=== PATIENT | female | born 1995 | race Caucasian/White ===

== ENCOUNTER 2017-12-10 17:54 | Emergency (ER) | payer MEDICAID ==
[2017-12-10 19:46] VITALS: BP 119/74
--- NOTE | 2017-12-10 19:49 | EDM.PDOC ---
ED HPI GENERAL MEDICAL PROBLEM - General Chief Complaint: General Stated Complaint: PT HAS FLU Time Seen by Provider: 12/10/17 19:26 - History of Present Illness INITIAL COMMENTS - FREE TEXT/NARRATIVE: HISTORY AND PHYSICAL: History of present illness: Patient is a 22-year-old white female presents with concern of cough congestion bodyaches she is a smoker she denies influenza immunization this been no fever chills nausea vomiting or other complaints Review of systems: As per history of present illness and below otherwise all systems reviewed and negative. Past medical history: As per history of present illness and as reviewed below otherwise noncontributory. Surgical history: As per history of present illness and as reviewed below otherwise noncontributory. Social history: No reported history of drug or alcohol abuse. Family history: As per history of present illness and as reviewed below otherwise noncontributory. Physical exam: HEENT: Atraumatic, normocephalic, pupils reactive, negative for conjunctival pallor or scleral icterus, mucous membranes moist, throat clear, neck supple, nontender, trachea midline. Lungs: Clear to auscultation, breath sounds equal bilaterally, chest nontender. Heart: S1S2, regular, negative for clicks, rubs, or JVD. Abdomen: Soft, nondistended, nontender. Negative for masses or hepatosplenomegaly. Negative for costovertebral tenderness. Pelvis: Stable nontender. Genitourinary: Deferred. Rectal: Deferred. Extremities: Atraumatic, negative for cords or calf pain. Neurovascular unremarkable. Neuro: Awake, alert, oriented. Cranial nerves II through XII unremarkable. Cerebellum unremarkable. Motor and sensory unremarkable throughout. Exam nonfocal. Diagnostics: Influenza screen Therapeutics: None Impression: #1 tracheobronchitis Definitive disposition and diagnosis as appropriate pending reevaluation and review of above. headache Pain Score (Numeric/FACES): 7 - Related Data Allergies Allergy/AdvReac Type Severity Reaction Status Date / Time mirtazapine [From Remeron] Allergy Hallucinati Verified 12/10/17 18:43 ons risperidone Allergy Other Verified 12/10/17 18:43 Home Meds: Home Meds . [No Known Home Meds] 07/11/16 [History] Past Medical History - Past Health History Medical/Surgical History: Denies Medical/Surgical History HEENT History: Reports: Impaired Vision Cardiovascular History: Reports: None Respiratory History: Reports: Asthma Gastrointestinal History: Reports: None Genitourinary History: Reports: STD, UTI, Recurrent CONSULTANT DIETITIAN History: Reports: , Spontaneous Musculoskeletal History: Reports: Fracture Neurological History: Reports: None Psychiatric History: Reports: Anxiety, Depression Endocrine/Metabolic History: Reports: None Hematologic History: Reports: None, Other (See Below) Other Hematologic History: IPT Immunologic History: Reports: None Oncologic (Cancer) History: Reports: None Dermatologic History: Reports: None - Infectious Disease History Infectious Disease History: Reports: Chicken Pox - Past Surgical History Head Surgeries/Procedures: Reports: None HEENT Surgical History: Reports: Visual, Other (See Below) Cardiovascular Surgical History: Reports: None Respiratory Surgical History: Reports: None GI Surgical History: Reports: None Female Surgical History: Reports: None Endocrine Surgical History: Reports: None Neurological Surgical History: Reports: None Musculoskeletal Surgical History: Reports: None Oncologic Surgical History: Reports: None Social & Family History - Family History Family Medical History: Noncontributory HEENT: Reports: None Cardiac: Reports: None Respiratory: Reports: None GI: Reports: None : Reports: None OBGYN: Reports: None Musculoskeletal: Reports: None Neurological: Reports: None Psychiatric: Reports: None Hematologic: Reports: None Immunologic: Reports: None Dermatologic: Reports: None Oncologic: Reports: None - Tobacco Use Smoking Status *Q: Current Every Day Smoker Years of Tobacco use: 5 Packs/Tins Daily: 0.5 Used Tobacco, but Quit: No Second Hand Smoke Exposure: No - Caffeine Use Caffeine Use: Reports: Soda - Alcohol Use Days Per Week of Alcohol Use: 0 Number of Drinks Per Day: 2 Total Drinks Per Week: 0 - Recreational Drug Use Recreational Drug Use: No ED ROS GENERAL - Review of Systems Review Of Systems: ROS reveals no pertinent complaints other than HPI. ED EXAM, GENERAL - Physical Exam Exam: See Below (See dictation) Course - Vital Signs Last Recorded V/S: Last Vital Signs Temp 37.2 C 12/10/17 19:45 Pulse 105 H 12/10/17 19:45 Resp 18 12/10/17 19:45 BP 119/74 12/10/17 19:45 Pulse Ox 97 12/10/17 19:45 Departure - Departure Time of Disposition: 19:49 Disposition: Home, Self-Care 01 Condition: Good Clinical Impression: Tracheobronchitis - Discharge Information Referrals: PCP,None [Primary Care Provider] - Additional Instructions: The following information is given to patients seen in the emergency department who are being discharged to home. This information is to outline your options for follow-up care. We provide all patients seen in our emergency department with a follow-up referral. The need for follow-up, as well as the timing and circumstances, are variable depending upon the specifics of your emergency department visit. If you don't have a primary care physician on staff, we will provide you with a referral. We always advise you to contact your personal physician following an emergency department visit to inform them of the circumstance of the visit and for follow-up with them and/or the need for any referrals to a consulting specialist. The emergency department will also refer you to a specialist when appropriate. This referral assures that you have the opportunity for followup care with a specialist. All of these measure are taken in an effort to provide you with optimal care, which includes your followup. Under all circumstances we always encourage you to contact your private physician who remains a resource for coordinating your care. When calling for followup care, please make the office aware that this follow-up is from your recent emergency room visit. If for any reason you are refused follow-up, please contact the [facility] emergency department at and asked to speak to the emergency department charge nurse. [facility] [address] [place] [id number] Lisa-Giuliano albuterol as prescribed stop smoking follow-up primary medical doctor and/ or clinic above call to schedule routine appointment return as needed as discussed
== END 2017-12-10 19:56 | disposition home or self-care (01) ==
LOC: MW.ED 17:54
DX: J40 Bronchitis, not specified as acute or chronic (principal); F17.210 Nicotine dependence, cigarettes, uncomplicated; Z88.8 Allergy status to other drugs, medicaments and biological substances
CPT/HCPCS: 87804; 99283

== ENCOUNTER 2020-12-22 09:56 | Inpatient (IN) | payer BC, OTHER ==
[2020-12-22] MEDS: Lactated Ringers 1,000 ML IV SCH ×2 (10:18→11:34)
[2020-12-22] MEDS ORDERED: Sodium Chloride 0.9% 2.5 ML Syringe FLUSH PRN (10:36)
[2020-12-22] MEDS ORDERED: Sodium Chloride 0.9% 10 ML SDV IV PRN (10:36)
[2020-12-22] MEDS ORDERED: Sodium Chloride 0.9% 10 ML Syringe FLUSH PRN (10:36)
[2020-12-22] MEDS ORDERED: Oxytocin/0.9 % Sodium Chloride 30 UNIT/500 ML BAG IV SCH (10:45)
--- NOTE | 2020-12-22 10:56 | PCM.LDHP ---
L&D History of Present Illness - General Date of Service: 12/22/20 Admit Problem/Dx: Patient Status Order with Admit Dx/Problem 12/22/20 10:05 Patient Status [ADT] Routine Admission Diagnosis/Problem Admission Diagnosis/Problem Source of Information: Patient History Limitations: Reports: No Limitations - History of Present Illness Improves with: Reports: None Worsens with: Reports: None Associated Symptoms: Reports: N - Related Data Allergies/Adverse Reactions: Allergies Allergy/AdvReac Type Severity Reaction Status Date / Time mirtazapine [From Remeron] Allergy Hallucinati Verified 12/21/20 07:47 ons risperidone Allergy Cannot Verified 12/21/20 09:22 Remember Home Medications: Home Meds Levothyroxine Sodium [Levothyroxine] 50 mcg PO BEDTIME 12/05/20 [History] PARoxetine HCL [Paroxetine HCl] 20 mg PO BEDTIME 12/05/20 [History] Calcium Carbonate [Tums] 1 tab.chew CHEW ASDIRECTED PRN 12/21/20 [History] Clindamycin Phos/Benzoyl Perox [Clind pH-Benzoyl Mavis 1.2-2.5%] 1 applic TOP DAILY 12/21/20 [History] Past Medical History - Past Health History Medical/Surgical History: Denies Medical/Surgical History HEENT History: Reports: Impaired Vision Other HEENT History: wears glasses Cardiovascular History: Reports: None Other Cardiovascular History: murmur as a child Respiratory History: Reports: Asthma Other Respiratory History: "undiagnosed sleep apnea", failed home sleep study, asthma in the past Gastrointestinal History: Reports: None Other Gastrointestinal History: occasional heartburn with Genitourinary History: Reports: STD, UTI, Recurrent 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 SUBMARINE CABLE History: Reports: , Spontaneous Musculoskeletal History: Reports: Fracture Neurological History: Reports: None Psychiatric History: Reports: Anxiety, Depression Endocrine/Metabolic History: Reports: None Hematologic History: Reports: None, Other (See Below) Other Hematologic History: IPT Immunologic History: Reports: None Oncologic (Cancer) History: Reports: None Dermatologic History: Reports: None - Infectious Disease History Infectious Disease History: Reports: Chicken Pox - Past Surgical History HEENT Surgical History: Reports: Visual, Other (See Below) Other HEENT Surgeries/Procedures: eye surgery Female Surgical History: Reports: None Social & Family History - Family History Family Medical History: No Pertinent Family History HEENT: Reports: None Cardiac: Reports: None Respiratory: Reports: None GI: Reports: None : Reports: None OBGYN: Reports: None Musculoskeletal: Reports: None Neurological: Reports: None Psychiatric: Reports: None Hematologic: Reports: None Immunologic: Reports: None Dermatologic: Reports: None Oncologic: Reports: None - Caffeine Use Caffeine Use: Reports: Soda H&P Review of Systems - Review of Systems: Review Of Systems: See Below General: Reports: No Symptoms HEENT: Reports: No Symptoms Pulmonary: Reports: No Symptoms Cardiovascular: Reports: No Symptoms Gastrointestinal: Reports: No Symptoms Genitourinary: Reports: No Symptoms Musculoskeletal: Reports: No Symptoms Skin: Reports: No Symptoms Psychiatric: Reports: No Symptoms Neurological: Reports: No Symptoms Hematologic/Lymphatic: Reports: No Symptoms Immunologic: Reports: No Symptoms L&D Exam - Exam Exam: See Below - Vital Signs Weight: 108.862 kg - OB Specific Contraction Intensity: Mild Movement: Active Heart Tones: Present Presentation: Vertex - Michaud Score Michaud Score Cervix Position: Posterior Michaud Score Consistency: Medium Michaud Score Effacement: 31-50% Michaud Score Dilation: 1-2 cm Michaud Score 's Station: -3 Michaud Score Total: 3 - Exam General: Alert, Oriented HEENT: PERRLA, Conjunctiva Clear, EACs Clear, EOMI, Hearing Intact, Mucosa Moist & [place], Nares Patent, Normal Nasal Septum, Posterior Pharynx Clear, TMs Clear Neck: Supple, Trachea Midline Lungs: Clear to Auscultation, Normal Respiratory Effort Cardiovascular: Regular Rate, Regular Rhythm GI/Abdominal Exam: Normal Bowel Sounds, Soft, Non-Tender, No Organomegaly, No Distention, No Abnormal Bruit, No Mass, Pelvis Stable Rectal Exam: Normal Exam, Normal Rectal Tone Genitourinary: Normal external exam, Normal bimanual exam, Normal speculum exam Back Exam: Normal Inspection, Full Range of Motion Extremities: Normal Inspection, Normal Range of Motion, Non-Tender, No Pedal Edema, Normal Capillary Refill Skin: Warm, Dry, Intact Neurological: Cranial Nerves Intact, Reflexes Equal Bilateral Psychiatric: Alert, Normal Affect, Normal Mood Problem List Initiated/Reviewed/Updated: Yes Orders Last 24hrs: Active Orders 24 hr Category Date Time Status Patient Status [ADT] Routine ADT 12/22/20 10:05 Active Non Stress Test [RC] PER UNIT ROUTINE Care 12/22/20 10:36 Active Notify Provider Vital Signs [RC] PRN Care 12/22/20 10:37 Active Procedure Site Prep Instruct [RC] ASDIRECTED Care 12/22/20 10:36 Active Up ad Mela [RC] ASDIRECTED Care 12/22/20 10:36 Active Verify Patient Consent Obtain [RC] ASDIRECTED Care 12/22/20 10:36 Active Vital Signs [RC] PER UNIT ROUTINE Care 12/22/20 10:36 Active CBC W/O DIFF,HEMOGRAM [HEME] Routine Lab 12/22/20 10:18 Received RPR (SYPHILIS SERO) W/ RFLX [REF] Routine Lab 12/22/20 10:18 Received TYPE AND SCREEN [BBK] Routine Lab 12/22/20 10:18 Received Citric Acid/Sodium Citrate [Bicitra Solution] Med 12/22/20 12:00 Once 30 ml PO ONETIME ONE Lactated Ringers [Ringers, Lactated] 1,000 ml Med 12/22/20 10:45 Active IV BOLUS Oxytocin/0.9 % Sodium Chloride [Oxytocin 30 Unit/500 ML Med 12/22/20 10:45 Active -NS] 30 unit in 500 ml IV TITRATE Sodium Chloride 0.9% [Normal Saline] Med 12/22/20 10:36 Active 10 ml IV ASDIRECTED PRN Sodium Chloride 0.9% [Saline Flush] Med 12/22/20 10:36 Active 10 ml FLUSH ASDIRECTED PRN Sodium Chloride 0.9% [Saline Flush] Med 12/22/20 10:36 Active 2.5 ml FLUSH ASDIRECTED PRN Peripheral IV Insertion Adult [OM.PC] Routine Oth 12/22/20 10:36 Ordered Schedule Procedure [COMM] Per Unit Routine Oth 12/22/20 10:36 Ordered Resuscitation Status Routine Resus Stat 12/22/20 10:36 Ordered Medication Orders Citric Acid/Sodium Citrate (Bicitra Solution) 30 ml PO ONETIME ONE Stop: 12/22/20 12:01 Oxytocin/Sodium Chloride (Oxytocin 30 Unit/500 Ml-Ns) 30 unit in 500 mls @ 250 mls/hr IV TITRATE ABILIO Lactated Ringer's (Ringers, Lactated) 1,000 mls @ 500 mls/hr IV BOLUS ABILIO Sodium Chloride (Saline Flush) 10 ml FLUSH ASDIRECTED PRN PRN Reason: Keep Vein Open Sodium Chloride (Saline Flush) 2.5 ml FLUSH ASDIRECTED PRN PRN Reason: Keep Vein Open Sodium Chloride (Normal Saline) 10 ml IV ASDIRECTED PRN PRN Reason: IV Use Assessment/Plan Comment:: Intrauterine 38 weeks the previous section the patient admitted for elective repeat section she is having contraction immunizations comfortable however it is not dilating her cervix. patient have a history of ITP and she is followed by a special education superintendent here and she is cleared by him for surgery.
[2020-12-22] MEDS ORDERED: Octyl 2-Cyanoacrylate 1 Tube ONE (11:32)
[2020-12-22] MEDS ORDERED: Citric Acid/Sodium Citrate Solution 30 ML Cup PO ONE (12:00)
[2020-12-22] MEDS ORDERED: Ondansetron 4 MG/2 ML SDV IVPUSH PRN (12:33)
[2020-12-22] MEDS ORDERED: Acetaminophen/oxyCODONE 325-5 MG Tab PO PRN (12:33)
[2020-12-22] MEDS ORDERED: Tranexamic Acid 1,000 MG in Sodium Chloride 0.9% 100 ML IV PRN (12:33)
[2020-12-22] MEDS ORDERED: Lanolin 100% Cream 7 GM Tube TOP PRN (12:33)
[2020-12-22] MEDS ORDERED: Bisacodyl 10 MG Supp RECTAL PRN (12:33)
[2020-12-22] MEDS ORDERED: Methylergonovine 0.2 MG/1 ML Amp IM PRN (12:33)
[2020-12-22] MEDS ORDERED: Oxytocin 10 Units/1 ML SDV IM PRN (12:33)
[2020-12-22] MEDS ORDERED: diphenhydrAMINE 50 MG/ML SDV IVPUSH PRN (12:33)
[2020-12-22] MEDS ORDERED: Misoprostol 200 MCG Tab RECTAL PRN (12:33)
--- NOTE | 2020-12-22 12:38 | PCM.OPNOTE ---
- General Post-Op/Procedure Note Date of Surgery/Procedure: 12/22/20 Operative Procedure(s): Repeat C/section. Pre Op Diagnosis: [id number] Previous C/section. ITP Post-Op Diagnosis: Same Anesthesia Technique: Spinal Primary Surgeon: Cuauhtemoc Mcknight V Groove Cutter: Radha Leonardo EBL in mLs: 600 Complications: None Condition: Good
[2020-12-22] MEDS ORDERED: Ketorolac 30 MG/ML SDV IVPUSH SCH (12:45)
[2020-12-22] MEDS ORDERED: Lactated Ringers 1,000 ML IV SCH (12:45)
--- NOTE | 2020-12-22 13:28 | PCM.POSTAN ---
POST ANESTHESIA ASSESSMENT - MENTAL STATUS Mental Status: Alert - RESPIRATORY Respiratory Status: Respiratory Rate WNL - CARDIOVASCULAR CV Status: Pulse Rate WNL - GASTROINTESTINAL GI Status: No Symptoms - POST OP HYDRATION Hydration Status: Adequate & Stable
[2020-12-22] MEDS: Acetaminophen/oxyCODONE 325-5 MG Tab PO PRN ×2 (15:51→20:54)
[2020-12-22] MEDS ORDERED: Ibuprofen 800 MG Tab PO PRN (16:03)
[2020-12-22] MEDS: Docusate Sodium 100 MG Cap PO SCH (20:54)
[2020-12-23] MEDS: Acetaminophen/oxyCODONE 325-5 MG Tab PO PRN ×4 (00:45→14:51)
--- NOTE | 2020-12-23 05:45 | PCM.PNPP ---
- General Info Date of Service: 12/23/20 Admission Dx/Problem (Free Text): Patient Status Order with Admit Dx/Problem 12/22/20 10:05 Patient Status [ADT] Routine Admission Diagnosis/Problem Admission Diagnosis/Problem Melvina is a 25 yo s/p repeat LTCS at 38+0 weeks d/t spontaneous contractions. Patient reports she is doing well today; denies C/O fever, chills, sweating, cough, SOB, or any other problems or concerns today. NBF is at bedside in bassinet, resting quietly, EBFing well and without issue. Patient independently ambulating, eating, hydrating. Rivas catheter urine clear, discontinued ~5:15 am today; has not yet voided. Moderate surgical incision pain controlled with PO analgesia. CBC pending. hx includes: ITP, anemia, hypothyroidism, obesity. Functional Status: Reports: Pain Controlled, Tolerating Diet, Ambulating - Review of Systems General: Reports: No Symptoms HEENT: Reports: No Symptoms Pulmonary: Reports: No Symptoms Cardiovascular: Reports: No Symptoms Gastrointestinal: Reports: No Symptoms Genitourinary: Reports: No Symptoms Musculoskeletal: Reports: No Symptoms Skin: Reports: No Symptoms Neurological: Reports: No Symptoms Psychiatric: Reports: No Symptoms - General Info Date of Service: 12/23/20 - Patient Data Vital Signs - Most Recent: Last Vital Signs Temp 97.8 F 12/23/20 05:00 Pulse 98 12/23/20 05:00 Resp 18 12/23/20 05:00 BP 137/66 12/23/20 05:00 Pulse Ox 95 12/23/20 05:00 Weight - Most Recent: 240 lb I&O - Last 24 Hours: Intake & Output 12/22/20 12/22/20 12/23/20 14:59 22:59 06:59 Intake Total 2100 500 Output Total 750 850 Balance 1350 -350 Lab Results - Last 24 Hours: Laboratory Results - last 24 hr 12/22/20 12/22/20 Range/Units 10:18 10:18 WBC 11.03 H (4.0-11.0) K/uL RBC 3.98 L (4.30-5.90) M/uL Hgb 9.2 L (12.0-16.0) g/dL Hct 30.6 L (36.0-46.0) % MCV 76.9 L (80.0-98.0) fL MCH 23.1 L (27.0-32.0) pg MCHC 30.1 L (31.0-37.0) g/dL RDW Std Deviation 45.0 (28.0-62.0) fl RDW Coeff of Sintia 16 H (11.0-15.0) % Plt Count 73 L (150-400) K/uL Nucleated RBC % 0.7 /100WBC Nucleated RBCs # 0 K/uL Blood Type B POSITIVE Antibody Screen NEGATIVE Crossmatch See Detail Med Orders - Current: Current Medications Bisacodyl (Dulcolax) 10 mg RECTAL ONETIME PRN PRN Reason: Constipation Diphenhydramine HCl (Benadryl) 25 mg IVPUSH Q6H PRN PRN Reason: Itching or Nausea Last Admin: 12/22/20 14:02 Dose: 25 mg Documented by: Docusate Sodium (Colace) 100 mg PO BID [facility] Last Admin: 12/22/20 20:54 Dose: 100 mg Documented by: Emollient Ointment (Lansinoh Hpa) 0 gm TOP ASDIRECTED PRN PRN Reason: Sore Nipples Oxytocin/Sodium Chloride (Oxytocin 30 Unit/500 Ml-Ns) 30 unit in 500 mls @ 250 mls/hr IV TITRATE [facility] Lactated Ringer's (Ringers, Lactated) 1,000 mls @ 500 mls/hr IV BOLUS [facility] Last Admin: 12/22/20 11:34 Dose: 999 mls/hr Documented by: Lactated Ringer's (Ringers, Lactated) 1,000 mls @ 125 mls/hr IV ASDIRECTED [facility] Last Admin: 12/22/20 16:57 Dose: 125 mls/hr Documented by: Tranexamic Acid 1,000 mg/ (Sodium Chloride) 110 mls @ 660 mls/hr IV ONETIME PRN PRN Reason: Bleeding Ibuprofen (Motrin) 800 mg PO Q8H PRN PRN Reason: mild pain or fever Methylergonovine Maleate (Methergine) 0.2 mg IM ONETIME PRN PRN Reason: Excessive Vaginal Bleeding Misoprostol (Cytotec) 1,000 mcg RECTAL ONETIME PRN PRN Reason: excessive bleeding Ondansetron HCl (Zofran) 4 mg IVPUSH Q4H PRN PRN Reason: Nausea/Vomiting Oxycodone/Acetaminophen (Percocet 325-5 Mg) 1 tab PO Q4H PRN PRN Reason: Pain (moderate 4-6) Oxycodone/Acetaminophen (Percocet 325-5 Mg) 2 tab PO Q4H PRN PRN Reason: Pain (moderate 4-6) Last Admin: 12/23/20 04:58 Dose: 2 tab Documented by: Oxytocin (Pitocin) 10 unit IM ASDIRECTED PRN PRN Reason: Excessive Vaginal Bleeding Polysaccharide Iron Complex (Ferrex 150) 150 mg PO BID [facility] Sodium Chloride (Saline Flush) 10 ml FLUSH ASDIRECTED PRN PRN Reason: Keep Vein Open Sodium Chloride (Saline Flush) 2.5 ml FLUSH ASDIRECTED PRN PRN Reason: Keep Vein Open Sodium Chloride (Normal Saline) 10 ml IV ASDIRECTED PRN PRN Reason: IV Use Discontinued Medications Citric Acid/Sodium Citrate (Bicitra Solution) 30 ml PO ONETIME ONE Stop: 12/22/20 12:01 Last Admin: 12/22/20 15:40 Dose: Not Given Documented by: Ketorolac Tromethamine (Toradol) 30 mg IVPUSH Q6H [facility] Stop: 12/23/20 12:46 Last Admin: 12/22/20 15:40 Dose: Not Given Documented by: Octyl Cyanoacrylate (Dermabond Advance) Confirm Administered Dose 1 applic .ROUTE .STK-MED ONE Stop: 12/22/20 11:33 - Interaction Infant Disposition, : at Bedside Interaction: Not Interacting Infant Feeding: Breastfed ; Nursed Well, Continues to Breastfeed, Encouraged to Breastfeed Support Person: - Recovery Exam Fundal Tone: Firm Fundal Level: 1 Fingerbreadths Below Umbilicus Fundal Placement: Midline Lochia Amount: Moderate Lochia Color: Rubra/Red Perineum Description: Intact, Minimal Bruising/Swelling Episiotomy/Laceration: None Bladder Status: Nonpalpable Urinary Elimination: Not Voiding Other Urinary Elimination, : Rivas catheter discontinued ~0515 am today - Exam General: Alert, Oriented, Cooperative, No Acute Distress HEENT: Pupils Equal, Mucous Membr. Moist/Eugenio Saenz Neck: Supple Lungs: Clear to Auscultation, Normal Respiratory Effort Cardiovascular: Regular Rate, Regular Rhythm GI/Abdominal Exam: Normal Bowel Sounds, Soft, Non-Tender, No Organomegaly, No Distention Extremities: Normal Inspection, Normal Range of Motion, Non-Tender, No Pedal Edema, Normal Capillary Refill Skin: Warm, Dry, Intact Wound/Incisions: Dressing Dry and Intact (MISHA dressing clean, dry, intact, no drainage noted.) Neurological: No New Focal Deficit Psy/Mental Status: Alert, Normal Affect, Normal Mood - Problem List & Annotations (1) Status post repeat low transverse section SNOMED Code(s): 963082786, 73665233, 756121512, 526287174, 001717123 Code(s): Z98.891 - HISTORY OF UTERINE SCAR FROM PREVIOUS SURGERY Status: Acute Priority: High Current Visit: Yes (2) Lactating mother SNOMED Code(s): 992825008, 972215825 Code(s): Z39.1 - ENCOUNTER FOR CARE AND EXAMINATION OF LACTATING MOTHER Status: Acute Priority: High Current Visit: Yes - Problem List Review Problem List Initiated/Reviewed/Updated: Yes - My Orders Last 24 Hours: My Active Orders 12/23/20 05:00 CBC WITH AUTO DIFF [HEME] Routine 12/23/20 09:00 Iron Polysaccharides Complex [Ferrex 150] 150 mg PO BID - Plan Plan:: Continue with POC s/p repeat LTCS of viable NBF. Rivas D/Cd, if patient has not voided within 6 hours S/P D/C, plan to notify provider. Plan to ambulate 3-5 times today. Continue to eat, hydrate, and EBF independently. Plan to continue PO analgesia today. Iron 150 mg BID initiated today re: anemia. CBC collection pending. Dr. Mcknight notified and agreeable with POC.
--- NOTE | 2020-12-23 07:29 | PCM48HPAN ---
Post Anesthesia Note - EVALUATION WITHIN 48HRS OF ANESTHETIC Vital Signs in Normal Range: Yes Patient Participated in Evaluation: Yes Respiratory Function Stable: Yes Airway Patent: Yes Cardiovascular Function Stable: Yes Hydration Status Stable: Yes Pain Control Satisfactory: Yes Nausea and Vomiting Control Satisfactory: Yes Mental Status Recovered: Yes Vital Signs: Last Vital Signs Temp 36.6 C 12/23/20 05:00 Pulse 101 H 12/23/20 06:55 Resp 18 12/23/20 06:55 BP 137/66 12/23/20 05:00 Pulse Ox 91 L 12/23/20 06:55
[2020-12-23] MEDS: Iron Polysaccharides Complex 150 MG Cap PO SCH ×2 (09:20→20:26)
[2020-12-23] MEDS: Docusate Sodium 100 MG Cap PO SCH ×2 (09:20→20:26)
[2020-12-23] MEDS: Acetaminophen/oxyCODONE 325-10 MG Tab PO PRN ×2 (19:13→23:30)
[2020-12-23] MEDS ORDERED: Simethicone 80 MG Tab.Chew PO PRN (20:01)
[2020-12-24] MEDS: Acetaminophen/oxyCODONE 325-10 MG Tab PO PRN ×3 (04:24→14:38)
[2020-12-24] MEDS: Docusate Sodium 100 MG Cap PO SCH (08:54)
[2020-12-24] MEDS: Iron Polysaccharides Complex 150 MG Cap PO SCH (08:54)
--- NOTE | 2020-12-24 12:02 | PCM.DCSUM1 ---
Discharge Summary - Hospital Course Free Text/Narrative:: Melvina is a 25 yo PPD2 s/p repeat LTCS at 38+0 weeks d/t spontaneous contractions. Patient reports she is doing well today; denies C/O fever, chills, sweating, cough, SOB, or any other problems or concerns today. NBF is at bedside in bassinet, resting quietly, EBFing fairly well with bottle supplementation. Patient independently ambulating, eating, hydrating, urinating. Moderate surgical incision pain controlled with PO analgesia, moderate "gas pains" alleviated with hydration, ambulation, flatulence, and simethicone. MISHA dressing clean, dry, intact, scant old blood noted to midline incision. hx includes: ITP, anemia, hypothyroidism, obesity. Hgb: 9.0, Platelets 97. Hemodynamically stable, afebrile. Diagnosis: Stroke: No - Discharge Data Discharge Date: 12/24/20 Discharge Disposition: Home, Self-Care 01 Condition: Good - Referral to Home Health Primary Care Physician: PCP None - Discharge Diagnosis/Problem(s) (1) Status post repeat low transverse section SNOMED Code(s): 116685961, [id number], [id number], [id number], [id number] ICD Code: Z98.891 - HISTORY OF UTERINE SCAR FROM PREVIOUS SURGERY Status: Acute Priority: High Current Visit: Yes (2) Lactating mother SNOMED Code(s): 406262784, 430898352 ICD Code: Z39.1 - ENCOUNTER FOR CARE AND EXAMINATION OF LACTATING MOTHER Status: Acute Priority: High Current Visit: Yes - Patient Summary/Data Operative Procedure(s) Performed: Repeat C/section. - Patient Instructions Diet: Usual Diet as Tolerated, Regular Diet as Tolerated, Drink 8-10+ Glasses/Day Activity: As Tolerated, No Strenuous Activities, Rest and Relax Today Driving: May Drive Today Showering/Bathing: May Shower Wound/Incision Care: Keep Operative Site/Wound Site Clean and Dry, Do NOT Change Dressing Notify Provider of: Fever, Increased Pain, Swelling and Redness, Drainage, Nausea and/or Vomiting - Discharge Plan *PRESCRIPTION DRUG MONITORING PROGRAM REVIEWED*: No *COPY OF PRESCRIPTION DRUG MONITORING REPORT IN PATIENT CHANTAL: No Prescriptions/Med Rec: Docusate Sodium [Colace] 100 mg PO BID #60 cap Iron Polysaccharides Complex [Ferrex 150] 150 mg PO DAILY #30 cap polyethylene glycoL 3350 [MiraLAX] 17 gm PO DAILY #1 container Ibuprofen [Motrin] 800 mg PO Q8H PRN #90 tablet PRN Reason: mild pain or fever Acetaminophen/oxyCODONE [Percocet 325-10 MG] 0.5 - 1 tab PO Q4H PRN #15 tablet PRN Reason: Pain Simethicone 160 mg PO Q4H PRN #60 tab.chew PRN Reason: Gas Home Medications: Home Meds Levothyroxine Sodium [Levothyroxine] 50 mcg PO BEDTIME 12/05/20 [History] PARoxetine HCL [Paroxetine HCl] 20 mg PO BEDTIME 12/05/20 [History] Acetaminophen/oxyCODONE [Percocet 325-10 MG] 0.5 - 1 tab PO Q4H PRN #15 tablet 12/24/20 [Rx] Docusate Sodium [Colace] 100 mg PO BID #60 cap 12/24/20 [Rx] Ibuprofen [Motrin] 800 mg PO Q8H PRN #90 tablet 12/24/20 [Rx] Iron Polysaccharides Complex [Ferrex 150] 150 mg PO DAILY #30 cap 12/24/20 [Rx] Simethicone 160 mg PO Q4H PRN #60 tab.chew 12/24/20 [Rx] polyethylene glycoL 3350 [MiraLAX] 17 gm PO DAILY #1 container 12/24/20 [Rx] Oxygen Therapy Mode: Room Air - Discharge Summary/Plan Comment DC Time >30 min.: Yes Discharge Summary/Plan Comment: OK to discharge home today. Keep dressing clean, dry, intact. RTO in 1 week for dressing removal and incision check. - General Info Date of Service: 12/24/20 Admission Dx/Problem (Free Text: Patient Status Order with Admit Dx/Problem 12/22/20 10:05 Patient Status [ADT] Routine Admission Diagnosis/Problem Admission Diagnosis/Problem Melvina is a 25 yo s/p repeat LTCS at 38+0 weeks d/t spontaneous contractions. Patient reports she is doing well today; denies C/O fever, chills, sweating, cough, SOB, or any other problems or concerns today. NBF is at bedside in bassinet, resting quietly, EBFing well and without issue. Patient independently ambulating, eating, hydrating. Rivas catheter urine clear, discontinued ~5:15 am today; has not yet voided. Moderate surgical incision pain controlled with PO analgesia. CBC pending. hx includes: ITP, anemia, hypothyroidism, obesity. Functional Status: Reports: Pain Controlled, Tolerating Diet, Ambulating, Urinating - Review of Systems General: Reports: No Symptoms HEENT: Reports: No Symptoms Pulmonary: Reports: No Symptoms Cardiovascular: Reports: No Symptoms Gastrointestinal: Reports: No Symptoms Genitourinary: Reports: No Symptoms Musculoskeletal: Reports: No Symptoms Skin: Reports: No Symptoms Neurological: Reports: No Symptoms Psychiatric: Reports: No Symptoms - Patient Data Vitals - Most Recent: Last Vital Signs Temp 97.4 F 12/24/20 08:59 Pulse 102 H 12/24/20 08:59 Resp 18 12/24/20 08:59 BP 123/75 12/24/20 08:59 Pulse Ox 99 12/24/20 08:59 Weight - Most Recent: 240 lb Lab Results - Last 24 hrs: Laboratory Results - last 24 hr 12/24/20 Range/Units 10:06 WBC 18.07 H (4.0-11.0) K/uL RBC 3.90 L (4.30-5.90) M/uL Hgb 9.0 L (12.0-16.0) g/dL Hct 30.6 L (36.0-46.0) % MCV 78.5 L (80.0-98.0) fL MCH 23.1 L (27.0-32.0) pg MCHC 29.4 L (31.0-37.0) g/dL RDW Std Deviation 47.4 (28.0-62.0) fl RDW Coeff of Sintia 17 H (11.0-15.0) % Plt Count 97 L (150-400) K/uL Nucleated RBC % 0.0 /100WBC Nucleated RBCs # 0 K/uL Med Orders - Current: Current Medications Bisacodyl (Dulcolax) 10 mg RECTAL ONETIME PRN PRN Reason: Constipation Diphenhydramine HCl (Benadryl) 25 mg IVPUSH Q6H PRN PRN Reason: Itching or Nausea Last Admin: 12/22/20 14:02 Dose: 25 mg Documented by: Docusate Sodium (Colace) 100 mg PO BID [facility] Last Admin: 12/24/20 08:54 Dose: 100 mg Documented by: Emollient Ointment (Lansinoh Hpa) 0 gm TOP ASDIRECTED PRN PRN Reason: Sore Nipples Oxytocin/Sodium Chloride (Oxytocin 30 Unit/500 Ml-Ns) 30 unit in 500 mls @ 250 mls/hr IV TITRATE [facility] Lactated Ringer's (Ringers, Lactated) 1,000 mls @ 500 mls/hr IV BOLUS [facility] Last Admin: 12/22/20 11:34 Dose: 999 mls/hr Documented by: Lactated Ringer's (Ringers, Lactated) 1,000 mls @ 125 mls/hr IV ASDIRECTED [facility] Last Admin: 12/22/20 16:57 Dose: 125 mls/hr Documented by: Tranexamic Acid 1,000 mg/ (Sodium Chloride) 110 mls @ 660 mls/hr IV ONETIME PRN PRN Reason: Bleeding Ibuprofen (Motrin) 800 mg PO Q8H PRN PRN Reason: mild pain or fever Methylergonovine Maleate (Methergine) 0.2 mg IM ONETIME PRN PRN Reason: Excessive Vaginal Bleeding Misoprostol (Cytotec) 1,000 mcg RECTAL ONETIME PRN PRN Reason: excessive bleeding Ondansetron HCl (Zofran) 4 mg IVPUSH Q4H PRN PRN Reason: Nausea/Vomiting Oxycodone/Acetaminophen (Percocet 325-10 Mg) 1 tab PO Q4H PRN PRN Reason: Pain Last Admin: 12/24/20 08:54 Dose: 1 tab Documented by: Oxytocin (Pitocin) 10 unit IM ASDIRECTED PRN PRN Reason: Excessive Vaginal Bleeding Polysaccharide Iron Complex (Ferrex 150) 150 mg PO BID [facility] Last Admin: 12/24/20 08:54 Dose: 150 mg Documented by: Simethicone (Simethicone) 160 mg PO Q4H PRN PRN Reason: Gas Last Admin: 12/24/20 09:31 Dose: 160 mg Documented by: Sodium Chloride (Saline Flush) 10 ml FLUSH ASDIRECTED PRN PRN Reason: Keep Vein Open Sodium Chloride (Saline Flush) 2.5 ml FLUSH ASDIRECTED PRN PRN Reason: Keep Vein Open Sodium Chloride (Normal Saline) 10 ml IV ASDIRECTED PRN PRN Reason: IV Use Discontinued Medications Citric Acid/Sodium Citrate (Bicitra Solution) 30 ml PO ONETIME ONE Stop: 12/22/20 12:01 Last Admin: 12/22/20 15:40 Dose: Not Given Documented by: Ketorolac Tromethamine (Toradol) 30 mg IVPUSH Q6H ABILIO Stop: 12/23/20 12:46 Last Admin: 12/22/20 15:40 Dose: Not Given Documented by: Octyl Cyanoacrylate (Dermabond Advance) Confirm Administered Dose 1 applic .RO [place] .STK-MED ONE Stop: 12/22/20 11:33 Last Admin: 12/24/20 07:26 Dose: Not Given Documented by: Oxycodone/Acetaminophen (Percocet 325-5 Mg) 1 tab PO Q4H PRN PRN Reason: Pain (moderate 4-6) Oxycodone/Acetaminophen (Percocet 325-5 Mg) 2 tab PO Q4H PRN PRN Reason: Pain (moderate 4-6) Last Admin: 12/23/20 14:51 Dose: 2 tab Documented by: - Exam General: Reports: Alert, Oriented, Cooperative, No Acute Distress HEENT: Reports: Pupils Equal, Mucous Membr. Moist/Svensen Neck: Reports: Supple Lungs: Reports: Clear to Auscultation, Normal Respiratory Effort Cardiovascular: Reports: Regular Rate, Regular Rhythm GI/Abdominal Exam: Normal Bowel Sounds, Soft, Non-Tender, No Organomegaly, No Distention (Female) Exam: Normal External Exam, Enlarged Uterus ( uterus, firm @U), Vaginal Bleeding (Small to moderate rubra lochia, no clots.) Rectal (Female) Exam: Deferred Back Exam: Reports: Normal Inspection, Full Range of Motion Extremities: Normal Inspection, Normal Range of Motion, Non-Tender, No Pedal Edema, Normal Capillary Refill Skin: Reports: Warm, Dry, Intact Wound/Incisions: Reports: Dressing Dry and Intact, Drainage (Small old drainage to midline of incision.) Neurological: Reports: No New Focal Deficit Psy/Mental Status: Reports: Alert, Normal Affect, Normal Mood
[2020-12-24 12:21] VITALS: BP 117/64; PULSE 104
--- NOTE | 2020-12-25 07:59 | OR ---
SURGEON: Cuauhtemoc Mcknight MD DATE OF PROCEDURE: 12/22/2020 PREOPERATIVE DIAGNOSES: Intrauterine at 38 weeks plus, previous section, idiopathic thrombocytopenic purpura. POSTOPERATIVE DIAGNOSES: Intrauterine at 38 weeks plus, previous section, idiopathic thrombocytopenic purpura. OPERATION PERFORMED: Repeat low transverse section. PRIMARY SURGEON: Cuauhtemoc Mcknight MD [employer] TRAINER: Radha Leonardo CNM ANESTHESIA: Spinal, Deandre Montano and Dr. Guerrero. ESTIMATED BLOOD LOSS: 600 mL. COMPLICATIONS: None. FINDINGS: Female fetus. score reported to be 8 and 9. Normal uterus, tubes, and ovaries. INDICATIONS FOR SURGERY: This patient is 25. She had a previous section. She is 38 weeks. She had ITP. The last time her platelet count in the office was 90,000, today it is 75,000. Her hematocrit is stable. She was cleared by her oncologist- eyeglass frame truer for section. PROCEDURE IN DETAIL: The patient was brought to the OR, properly identified, and after adequate level of spinal anesthesia with a Rivas catheter in the bladder, the patient was prepped and draped in sterile fashion as usual. Low transverse Pfannenstiel skin incision through the old scar was done. Ping fascia and rectus fascia were opened in direction of the incision. The two recti muscles were . Peritoneal cavity was entered and low-transverse uterine incision was done and extended manually with the hand. Fetus was in a vertex position, delivered without any problem, cried immediately. score reported to be 8 and 9. The weight is not available. The placenta delivered spontaneous, complete, and intact. Then, repair of the lower uterine segment done with 2-0 Vicryl continuous interlocking in two layers. Reperitonealization done with 3-0 Vicryl continuous. The peritoneal cavity evacuated completely from all blood and blood clot and closed with 3-0 Vicryl continuous. The rectus fascia was closed with #1 PDS double strand continuous, Ping fascia with 3-0 Vicryl continuous, and the skin closed with Stratafix in a subcuticular fashion and Dermabond. Instrument and sponge count was correct. The patient tolerated the procedure well, went to recovery room in stable general condition. MAULIK / MÓNICA /[id number]
== END 2020-12-24 15:40 | disposition home or self-care (01) | DRG 540 ==
LOC: MW.OBCHECK 09:56 → MW.OB 09:59
PROVIDERS: ADMIT Obstetrics & Gynecology; ATTEND Obstetrics & Gynecology
PROC: 10D00Z1 Extraction of Products of Conception, Low, Open Approach (ICD-10-PCS; principal; 2020-12-22)
DX: O34.211 Maternal care for low transverse scar from previous cesarean delivery (principal); Z3A.38 38 weeks gestation of pregnancy; Z37.0 Single live birth; E03.9 Hypothyroidism, unspecified; E66.9 Obesity, unspecified; D64.9 Anemia, unspecified; O99.214 Obesity complicating childbirth; O99.284 Endocrine, nutritional and metabolic diseases complicating childbirth; O99.02 Anemia complicating childbirth; O99.12 Other diseases of the blood and blood-forming organs and certain disorders involving the immune mechanism complicating childbirth; D69.3 Immune thrombocytopenic purpura
CPT/HCPCS: 01961; 36415; 85025; 85027; 86592; 86850; 86900; 86901; 86920; 86921; 86922; A9270-GY; J0690; J1200; J1885; J2270; J2370; J2405; J2590; J7120

== ENCOUNTER 2024-07-26 13:44 | Emergency (ER) | payer OTHER | END 2024-07-26 14:39 | disposition left against medical advice (07) | LOC: MW.ED 13:44 | DX: Z53.21 Procedure and treatment not carried out due to patient leaving prior to being seen by health care provider (principal) ==